=== PATIENT | female | born 1965 | race Caucasian/White ===

== ENCOUNTER 2016-11-10 21:04 | Emergency (ER) | payer OTHER ==
--- NOTE | 2016-11-11 00:08 | ED CLINICAL REPORT ---
Clinical Report - Physicians/Mid Levels [facility] [address] [place] [address] 11/10/2016 21:04 Patient: ROBBY MORSE Time Seen: 21:37. Arrived- By private vehicle. Historian- patient. HISTORY OF PRESENT ILLNESS Chief Complaint: VOMITING. This started several days ago and is still present. It was gradual in onset and has been intermittent and waxing/waning. Recent travel in the last two (2) weeks- [place] and [place]. She has had nausea and vomiting. No diarrhea, black stools, bloody stools, flank pain or history of possible bad food exposure. No known contact with a sick individual. She has had mild abdominal pain (after vomiting). The pain is described as located in the epigastrium. Has not recently been camping. Has recently been on antibiotics for ENT problems (Augmentin). The illness is described as severe. REVIEW OF SYSTEMS No chills, fever, calf pain, chest pain or cough. No difficulty breathing, pedal edema, palpitations, black stools or bloody stools. No constipation, diarrhea or urinary problems. She has experienced sweats. All systems otherwise negative, except as recorded above. PAST HISTORY Problems: Asthma. Additional Surgeries: . Knee Surgery. Nephrectomy. Sinus Surgery. Tonsillectomy. Medications: Augmentin 875mg BID started on Monday. Allergy shots 1x/month. Albuterol Sulfate Inhalation 2 unit doses, PRN. Claritin Oral 10 mg, PRN. Flonase Nasal 2 sprays, daily. Methylphenidate HCl Oral (Tablet 20 mg) 1 tablet, daily. Qvar Inhalation 2 puffs daily . Singulair Oral, at bedtime. Allergies: Codeine.(dizziness) (nausea, vomiting) Levaquin. (general body aches "felt like I had the flu") Percocet.(diarrhea, nausea). SOCIAL HISTORY Never smoker. No alcohol use or drug use. FAMILY HISTORY No significant family medical history. ADDITIONAL NOTES The nursing notes have been reviewed. PHYSICAL EXAM Vital Signs: 11/10/2016 21:28 BP: 116/67. HR: 86. RR: 18. O2 saturation: 100%. Temp: 98.4 F. Pain level now: 08/02. Have been reviewed. Appearance: Alert. Eyes: Pupils equal, round and reactive to light. ENT: Pharynx normal. Neck: Normal inspection. Neck supple. CVS: Normal heart rate and rhythm. Heart sounds normal. Respiratory: No respiratory distress. Breath sounds normal. Abdomen: Soft and nontender. Bowel sounds normal. No organomegaly. No mass. Back: Normal inspection. No CVA tenderness. Skin: Skin warm and dry. Normal skin color. No rash. Normal skin turgor. Extremities: Extremities exhibit normal ROM. No calf tenderness. No lower extremity edema. LABS, X-RAYS, AND EKG Laboratory Tests: UA-Culture if indicated: (MANUEL: 11/10/2016 22:50) ( [facility] 11/10/2016 23:28) Final results Test Result Flag Units (Reference) URINE COLOR YELLOW URINE APPEARANCE CLEAR URINE GLUCOSE NEGATIVE (NEGATIVE) URINE BILIRUBIN NEGATIVE (NEGATIVE) URINE KETONE NEGATIVE (NEGATIVE) URINE SPECIFIC GRAVITY 1.010 (1.010-1.030) URINE PH 7.5 (5.0-8.0) URINE PROTEIN NEGATIVE (NEGATIVE) URINE UROBILINOGEN 0.2 EU/dL (0.2-1.0) URINE NITRITE NEGATIVE (NEGATIVE) URINE BLOOD NEGATIVE (NEGATIVE) URINE LEUK ESTERASE NEGATIVE (NEGATIVE) URINE RBC 0-1 rbc/hpf (0-1) URINE WBC 0-1 wbc/hpf (0-1) URINE EPITHELIAL CELLS 0-1 EPI/hpf (0-5) URINE BACTERIA NONE SEEN (NONE SEEN) URINE COMMENT CULT NOT INDICATED URINE CULTURES ARE SET-UP BASED ON THE FOLLOWING CRITERIA:POSITIVE NITRITEPOSITIVE LEUKOCYTE ESTERASEGREATER THAN 10 WHITE BLOOD CELLSMODERATE (2+) OR GREATER BACTERIA Urine: (MANUEL: 11/10/2016 22:50) ( [facility] 11/10/2016 23:17) Final results Test Result Flag Units (Reference) URINE NEGATIVE CBC w Diff: (MANUEL: 11/10/2016 21:55) ( [facility] 11/10/2016 22:14) Final results Test Result Flag Units (Reference) WHITE BLOOD COUNT 3.4 L K/uL (4.5-11.5) RED BLOOD COUNT 4.80 M/uL (4.00-5.20) HEMOGLOBIN 13.9 gm/dL (12.0-16.0) HEMATOCRIT 41.7 % (36.0-46.0) MEAN CELL VOLUME 87 fL (80-100) MEAN CORPUSCULAR HGB 29 pg (26-34) MEAN CORPUSCULAR HGB CONC 33 g/dL (31-37) RED CELL DISTRIBUTION WIDTH 12.8 % (11.6-14.8) PLATELET COUNT 153 K/uL (150-400) NEUTROPHIL % 35.1 L % (50-75) LYMPH % 51.5 H % (25-40) MONO % 11.4 % (3-14) EOSINOPHIL % 1.8 % (0-4) BASOPHIL % 0.2 % (0-2) CMP: (MANUEL: 11/10/2016 21:55) ( MsgRcvd 11/10/2016 22:30) Final results Test Result Flag Units (Reference) GLUCOSE 101 mg/dL (70-110) BUN 12 mg/dL (7-18) CREATININE 1.1 mg/dL (0.6-1.3) Estimated GFR 56.11 mL/min Estimated GFR- >60 mL/min Note: Persistent reduction over 3 months in eGFR<60 mL/min/1.73 m2 defines CKD. Patients with eGFR values>=60 mL/min/1.73 m2 may also have CKD if evidence ofpersistent proteinuria. Additional information may be foundat www.kidney.org. SODIUM 140 mmol/L (136-145) POTASSIUM 3.9 mmol/L (3.5-5.1) CHLORIDE 102 mmol/L (98-107) CARBON DIOXIDE 29 mmol/L (21-32) CALCIUM 8.7 mg/dL (8.5-10.1) TOTAL PROTEIN 6.8 g/dL (6.4-8.2) ALBUMIN 3.4 g/dL (3.3-5.0) BILIRUBIN, TOTAL 0.3 mg/dL (0.0-1.0) ALKALINE PHOSPHATASE 36 L U/L (46-116) AST (SGOT) 25 U/L (15-37) ALT (SGPT) 31 U/L (12-78) LIPASE 106 U/L (73-393) AMYLASE 52 U/L (25-115) . PROGRESS AND PROCEDURES Course of Care: Symptoms better. Vital signs have been reviewed. Physical exam findings are improved. Alert. No acute distress. Breath sounds normal. No respiratory distress. Normal heart rate and rhythm. Heart sounds normal. Abdomen soft and nontender. Skin warm and dry. Patient/family counseled. Old medical records ordered. Disposition: Discharged. Condition: stable. CLINICAL IMPRESSION Acute gastroenteritis. INSTRUCTIONS No driving or operating machinery while taking medication. Sedative medication was given during your visit. Rest. Drink plenty of fluids. Warnings: Further evaluation is necessary. GENERAL WARNINGS: Return or contact your physician immediately if your condition worsens or changes unexpectedly, if not improving as expected, or if other problems arise. Prescription Medications: Zofran 4 mg: Take 1 orally every six hours as needed for nausea/vomiting. Dispense ten (10). No refills. Substitution is permissible. Phenergan suppositories 25 mg: Insert 1 rectally every 4 to 6 hours as needed for nausea or vomiting. Dispense ten (10). No refills. Substitution is permissible. Follow-up: Follow up with your doctor HUSSAIN KITCHEN tomorrow. Call for an appointment. Understanding of the discharge instructions verbalized by patient and family. (Electronically signed by Harvey Palomino MD 11/11/2016 9:25)
--- NOTE | 2016-11-11 00:09 | ED ORDER SUMMARY ---
..... Patient: ROBBY MORSE OrderSheet [facility] VisitID: [id number] [address] [place] [address] 51y, F Registration Date/Time: 11/10/2016 ORDER SHEET Weight: 71.2 kg (stated) Allergies: Levaquin, Percocet, Codeine GENERAL ORDERS: CBC w Diff Urgent (21:43 11/10/2016 Zohreh ARAUZ) (Ack 21:45 SRedmond) (22:14 DDean R.N.) CMP Urgent (:43 11/10/2016 Zohreh ARAUZ) (Ack 21:45 SRedmond) (22:14 DDean R.N.) UA-Culture if indicated Urgent (:43 11/10/2016 Zhoreh ARAUZ) (Ack 21:45 SRedmond) (23:05 DDean R.N.) Amylase Urgent (:11/10/2016 Zohreh ARAUZ) (Ack 21:45 SRedmond) (22:14 DDean R.N.) Lipase Urgent (21:43 11/10/2016 Zohreh ARAUZ) (Ack 21:45 SRedmond) (22:14 DDean R.N.) Urine Urgent (:43 11/10/2016 Zohreh ARAUZ) (Ack 21:45 SRedmond) (23:05 DDean R.N.) MEDICATION ORDERS: Phenergan IV 25 mg (HIGH ALERT MEDICATION, NOW) (22:55 11/10/2016 DDean R.N. verbal order read back to Zohreh ARAUZ) (23:08 DDean R.N.) IV FLUIDS: IV NS : initial bolus 500 mL (1000 mL/hr), then 125 mL/hr for 4h (NOW); Urgent (21:43 11/10/2016 Zohreh ARAUZ) (Ack 21:45 DDean R.N.) (22:11 DDean R.N.) Zofran IV 4 mg (NOW) (21:43 11/10/2016 Zohreh ARAUZ) (Ack 21:45 DDean R.N.) (22:15 DDean R.N.) Protonix IVP 40mg 40 mg (Mix in NS 10ml over 2min) (22:11 11/10/2016 Zohreh ARAUZ) (Ack 22:15 DDean R.N.) (22:31 DDean R.N.) Zofran IV 4 mg (NOW) (22:55 11/10/2016 DDean R.N. per protocol) (22:56 DDean R.N.) ORDER SHEET NOTES: [Electronically signed by Gilma Lovell R.N. (00:43 11/11/2016)] [Electronically signed by Harvey Palomino MD (09:25 11/11/2016)] [Electronically locked/signed by Gilma Lovell R.N. (00:43 11/11/2016)]
--- NOTE | 2016-11-11 00:09 | ED NURSING NOTES ---
Clinical Report - Nurses [facility] [address] [place] [address] 11/10/2016 21:04 Patient: ROBBY MORSE TRIAGE Acuity: LEVEL 3. Chief Complaint: ABDOMINAL PAIN, NAUSEA and VOMITING and (pt started on antibiotics for sinus infection on Monday afternoon, started vomiting Tues PM. state vomiting started before any abd pain). --21:38 Sary Storey R.N. 21:28 11/10/16. BP: 116/67. HR: 86. RR: 18. O2 saturation: 100%. Temp: 98.4 F. Pain level now: 08/02. Additional comments: "really don't have pain, its just nausea". --21:38 Sary Storey R.N. Weight: 71.2 kg stated. Height/Length: 66.5 inches Per Patient. BMI: 25. --21:36 Sary Storey R.N. Medications Albuterol Sulfate Inhalation 2 unit doses, PRN. Claritin Oral 10 mg, PRN. Flonase Nasal 2 sprays, daily. Methylphenidate HCl Oral (Tablet 20 mg) 1 tablet, daily. Qvar Inhalation 2 puffs daily . Singulair Oral, at bedtime. --21:34 Sary Storey R.N. Allergy shots 1x/month. --21:35 Sary Storey R.N. Augmentin 875mg BID started on Monday. --21:36 Sary Storey R.N. Allergies Levaquin. (general body aches "felt like I had the flu") --21:31 Sary Storey R.N. Percocet.(diarrhea, nausea) --21:31 Sary Storey R.N. Codeine.(dizziness) (nausea, vomiting) --21:32 Sary Storey R.N. History Arrived by private vehicle. Historian: patient. Accompanied by spouse. Primary physician (amauri). The patient has had nausea and vomiting. She has had abdominal pain (epigastric pain "I think it is from throwing up"). ( [facility] called today and told pt to stop augmenting, and to take doxycyclin instead). SURGERY HX: . Right knee surgery. 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 Sinus surgery. Tonsillectomy. SOCIAL HX: Never smoker. No alcohol use or drug use. --21:38 Sary Storey R.N. PROBLEMS: Asthma. --21:29 Sary Storey R.N. Interventions ID band on patient. To treatment room. --21:38 Sary Storey R.N. PHYSICAL ASSESSMENT 21:28. Ambulatory to room. Patient gowned. GENERAL / NEURO / PSYCH: Alert. Oriented X 4. ( states "pain is a 1/10 but nausea is 10/10 "). RESPIRATORY: Respirations not labored. CVS: Capillary refill less than 2 seconds. GI / : Abdomen soft. SKIN: Skin is warm and dry. --21:44 Sary Storey R.N. NURSING PROGRESS NOTES 21:28. Patient gowned. Head of bed elevated. Reassurance given. Lights dimmed. Patient identifiers checked. Call light placed in reach. Side rails up. Bed placed in lowest position. Patient ready for evaluation- chart flagged. --21:44 Sary Storey R.N. 21:55 11/10/2016 Site #1 started via IV in the right antecubital space with an 20g angiocath, with aseptic technique and good blood return; one attempt. Blood drawn: rainbow set. Labeled in the presence of the patient and sent to the lab. Saline lock flushed with 10 mL saline. --22:10 Sary Storey R.N. 22:01 11/10/2016 Started bag #1 1000 mL IV Fluids IV NS (Saline); bolus of 500 mL over 30 minute(s) then at 125 mL/hr over 4 hour(s) via site #1 --22:11 Sary Storey R.N. 22:03 11/10/2016 Zofran (Ondansetron HCl) IVP 4 mg given over 1 minute(s) via site #1. IV patency established. IV site checked: no pain, redness, or swelling. IV flushed thoroughly pre- and post-medication administration. IVP given by RN. --22:15 Sary Storey R.N. 22:16 11/10/2016 PROTONIX (Pantoprazole Sodium) IVP 40 mg given over 2 minute(s) via site #1. IV patency established. IV site checked: no pain, redness, or swelling. IV flushed thoroughly pre- and post-medication administration. IVP given by RN. --22:31 Sary Storey R.N. 22:22 11/10/2016 Zofran (Ondansetron HCl) IVP 4 mg given over 1 minute(s) via site #1. IV patency established. IV site checked: no pain, redness, or swelling. IV flushed thoroughly pre- and post-medication administration. IVP given by RN. --22:56 Sary Storey R.N. 22:20 still nauseated, states nausea is still 8/10 ERMD notifed, additional meds given. --23:06 Sary Storey R.N. 22:45. Patient ID band checked for patient name and birthdate: patient confirmed. Clean catch urine collected with return of yellow-colored clear urine; sample sent to lab for urinalysis, culture and HCG. Specimen labeled in the presence of the patient. --23:07 Sary Storey R.N. 23:00 11/10/2016 PHENERGAN (Promethazine HCl) IVP 25 mg given over 2 minute(s) via site #1. IV patency established. IV site checked: no pain, redness, or swelling. IV flushed thoroughly pre- and post-medication administration. IVP given by RN. --23:08 Sary Storey R.N. 23:00. ( coughing vigorously--wrenching additional anti-nausea meds given). --23:08 Sary Storey R.N. 23:15 11/10/16. BP: 107/58. HR: 62. RR: 16. O2 saturation: 98% on room air. Temp: deferred. Pain level now: 0/10. Additional comments: states nausea is 4/10 now. cough is gone at present. at bedside. --23:20 Sary Storey R.N. 23:20 11/10/16. Care transferred and report given (NATHANIEL Dillard). --23:20 Sary Storey R.N. 00:41 11/11/2016 IV Fluids IV NS Discontinued: bag #1 completed upon discharge. Total amount infused: 94502 mL. IV patency established. IV site checked: no pain, redness, or swelling. IV flushed thoroughly. --00:41 Allie Estrada DISPOSITION / DISCHARGE 00:41 11/11/2016 Site #1 removed upon discharge. Catheter intact. Bandage applied. --00:41 Allie Estrada Departure time: 00:42. Condition at departure: improved. No learning barriers present. Discharge instructions provided and reviewed with the patient. Reviewed medication(s) side effects, precautions, dosing and course information. Prescription(s) given to the patient. Activity restrictions reviewed (no driving). Follow up contact number with PCP. Patient verbalized understanding. Written instructions provided in Egyptian. No warning instructions, treatment instructions, referrals given to the patient, diet instructions or note given. No stop smoking instructions. The patient was discharged by the physician. She was discharged home and accompanied by spouse. She left the Emergency Department ambulatory and via private vehicle. Spouse driving. FALL RISK ASSESSMENT: Fall risk assessment completed. No fall risk identified. --00:43 Allie Estrada 00:41 11/11/16. BP: 118/71. HR: 88. RR: 17. O2 saturation: 98%. Temp: deferred. Pain level now: 0/10. --00:43 Allie Estrada Locked/Released at 11/11/2016 0:43 by Allie Estrada
--- NOTE | 2016-11-11 00:09 | ED ORDER SUMMARY ---
..... Patient: ROBBY MORSE OrderSheet [facility] VisitID: [id number] [address] [place] [address] 51y, F Registration Date/Time: 11/10/2016 ORDER SHEET Weight: 71.2 kg (stated) Allergies: Levaquin, Percocet, Codeine GENERAL ORDERS: CBC w Diff Urgent (21:43 11/10/2016 Zohreh ARAUZ) (Ack 21:45 SRedmond) (22:14 DDean R.N.) CMP Urgent (:43 11/10/2016 Zohreh ARAUZ) (Ack 21:45 SRedmond) (22:14 DDean R.N.) UA-Culture if indicated Urgent (:43 11/10/2016 Zohreh ARAUZ) (Ack 21:45 SRedmond) (23:05 DDean R.N.) Amylase Urgent (:11/10/2016 Zohreh ARAUZ) (Ack 21:45 SRedmond) (22:14 DDean R.N.) Lipase Urgent (21:43 11/10/2016 Zohreh ARAUZ) (Ack 21:45 SRedmond) (22:14 DDean R.N.) Urine Urgent (:43 11/10/2016 Zohreh ARAZU) (Ack 21:45 SRedmond) (23:05 DDean R.N.) MEDICATION ORDERS: Phenergan IV 25 mg (HIGH ALERT MEDICATION, NOW) (22:55 11/10/2016 DDean R.N. verbal order read back to Zohreh ARAUZ) (23:08 DDean R.N.) IV FLUIDS: IV NS : initial bolus 500 mL (1000 mL/hr), then 125 mL/hr for 4h (NOW); Urgent (21:43 11/10/2016 Zohreh ARAUZ) (Ack 21:45 DDean R.N.) (22:11 DDean R.N.) Zofran IV 4 mg (NOW) (21:43 11/10/2016 Zohreh ARAUZ) (Ack 21:45 DDean R.N.) (22:15 DDean R.N.) Protonix IVP 40mg 40 mg (Mix in NS 10ml over 2min) (22:11 11/10/2016 Zohreh ARAUZ) (Ack 22:15 DDean R.N.) (22:31 DDean R.N.) Zofran IV 4 mg (NOW) (22:55 11/10/2016 DDean R.N. per protocol) (22:56 DDean R.N.) ORDER SHEET NOTES: [Electronically signed by Gilma Lovell R.N. (00:43 11/11/2016)] [Electronically signed by Harvey Palomino MD (09:25 11/11/2016)] [Electronically locked/signed by Gilma Lovell R.N. (00:43 11/11/2016)]
--- NOTE | 2016-11-11 09:26 | ED MED RECONCILIATION SUMMARY ---
Patient: ROBBY MORSE Medication Reconciliation Report VisitID: [id number] [address] [place] [address] 51y, F Registration Date/Time: 11/10/2016 Weight: 71.2 kg Height/Length: (not available) BMI: 25.0 ALLERGIES: Codeine, Levaquin, Percocet The patient's Home Medications are listed below: THE FOLLOWING MEDICATIONS NEED TO BE RECONCILED: Albuterol Sulfate Inhalation 2 unit doses, PRN Allergy shots 1x/month Augmentin 875mg BID started on Monday Claritin Oral 10 mg, PRN Flonase Nasal 2 sprays, daily Methylphenidate HCl Oral (20 mg) 1 tablet, daily Qvar Inhalation 2 puffs daily Singulair Oral, at bedtime The source(s) of the original Home Medication information: Not obtained. The following Medications were given to the patient in the Emergency Department: IV NS IV Fluids bolus 500 mL over 30 minute(s), then 125 mL/hr, administered: 11/10/2016 10:01:00 PM Zofran [IVP] IVP 4 mg, administered: 11/10/2016 10:03:00 PM PROTONIX [IVP] IVP 40 mg, administered: 11/10/2016 10:16:00 PM Zofran [IVP] IVP 4 mg, administered: 11/10/2016 10:22:00 PM PHENERGAN [IVP] IVP 25 mg, administered: 11/10/2016 11:00:00 PM The following Medications were prescribed to the patient: Zofran 4 mg: Take 1 orally every six hours as needed for nausea/vomiting. Dispense ten (10). No refills. Substitution is permissible. -- Harvey Palomino MD Phenergan suppositories 25 mg: Insert 1 rectally every 4 to 6 hours as needed for nausea or vomiting. Dispense ten (10). No refills. Substitution is permissible. -- Harvey Palomino MD
--- NOTE | 2016-11-11 09:26 | ED MAR SUMMARY ---
..... Medication Administration Record [facility] [address] [place] [address] Patient: ROBBY MORSE Visit ID: [id number] 51y, F Weight: 71.2 kg Height/Length: 66.5 in BMI: 25 ALLERGIES: Codeine, Percocet, Levaquin Start 22:01 11/10/2016 Sary Storey R.N., Stop 00:41 11/11/2016 Allie Esrtada Medication Administered: IV NS (SALINE), Dose: IV Fluids over 4 hour(s), Rate: 125 mL/hr, Bolus: 500 mL over 30 minute(s), Dispensed: 1000 mL bag, Site: #1 right AC. Medication Ordered: IV NS : initial bolus 500 mL (1000 mL/hr), then 125 mL/hr for 4h (NOW); Urgent. Given 22:03 11/10/2016 Sary Storey R.N. Medication Administered: ZOFRAN [IVP] (ONDANSETRON HCL), Dose: 4 mg IVP over 1 minute(s), Site: #1 right AC. Medication Ordered: Zofran IV 4 mg (NOW). Given 22:16 11/10/2016 Sary Storey R.N. Medication Administered: PROTONIX [IVP] (PANTOPRAZOLE SODIUM), Dose: 40 mg IVP over 2 minute(s), Site: #1 right AC. Medication Ordered: Protonix IVP 40mg 40 mg (Mix in NS 10ml over 2min). Given 22:22 11/10/2016 Sary Storey R.N. Medication Administered: ZOFRAN [IVP] (ONDANSETRON HCL), Dose: 4 mg IVP over 1 minute(s), Site: #1 right AC. Medication Ordered: Zofran IV 4 mg (NOW). Given 23:00 11/10/2016 Sary Storey R.N. Medication Administered: PHENERGAN [IVP] (PROMETHAZINE HCL), Dose: 25 mg IVP over 2 minute(s), Site: #1 right AC. Medication Ordered: Phenergan IV 25 mg (HIGH ALERT MEDICATION, NOW).
--- NOTE | 2016-11-11 09:26 | ED DISCHARGE INSTRUCTIONS ---
Patient: ROBBY MORSE General Instructions [facility] VisitID: [id number] [address] [place] [address] 51y, F Registration Date/Time: 11/10/2016 Acute gastroenteritis. INSTRUCTIONS No driving or operating machinery while taking medication. Sedative medication was given during your visit. Rest. Drink plenty of fluids. Warnings: Further evaluation is necessary. GENERAL WARNINGS: Return or contact your physician immediately if your condition worsens or changes unexpectedly, if not improving as expected, or if other problems arise. Prescription Medications: Zofran 4 mg: Take 1 orally every six hours as needed for nausea/vomiting. Dispense ten (10). No refills. Substitution is permissible. Phenergan suppositories 25 mg: Insert 1 rectally every 4 to 6 hours as needed for nausea or vomiting. Dispense ten (10). No refills. Substitution is permissible. Follow-up: Follow up with your doctor HUSSAIN KITCHEN tomorrow. Call for an appointment. Understanding of the discharge instructions verbalized by patient and family. ADDITIONAL INFORMATION Viral Gastroenteritis (6Yr-Adult) Gastroenteritis is another name for thestomach flu.It is most often caused by a virus that affects the stomach and intestinal tract. Symptoms include stomach cramping and fever, vomiting and/or diarrhea, and can last from 2 to 7 days. The danger from repeated vomiting or diarrhea is dehydration. This is the loss of too much water and minerals from the body. When this occurs, body fluids must be replaced. Antibiotics are not effective for this illness, but simple home treatment will be helpful. Home Care If symptoms are severe, rest at home for the next 24 hours. Avoid tobacco, caffeine, and alcohol use, which can worsen symptoms. Acetaminophen (Tylenol) or ibuprofen (Motrin, Advil) may be usedfor fever or pain unless another medication was prescribed. NOTE: If you have chronic liver or kidney disease or ever had a stomach ulcer or GI bleeding, talk with your doctor before using these medicines. Aspirin should never be used in anyone under 18 years of age who is ill with a fever. It may cause severe liver damage. If medicines for diarrhea or vomiting were prescribed, be sure they are takenonly as directed. If vomiting, drink small amounts of clear fluids (such as water, sports drinks, clear sodas) at frequent intervals to prevent dehydration. Start with 1 to 2 tablespoons every 10 minutes. Once vomiting stops, follow these guidelines: During The First 12 To 24 Hours follow the diet below: Beverages: Sport drinks like Gatorade, soft drinks without caffeine; cynthia cash, mineral water (plain or flavored), decaffeinated tea and coffee. Soups: Clear broth, consomm and bouillon Desserts: Plain gelatin (Jell-O), Popsicles and fruit juice bars. During The Next 24 Hours you may add the following to the above: Hot cereal, plain toast, bread, rolls, crackers Plain noodles, rice, mashed potatoes, chicken noodle or rice soup Unsweetened canned fruit (avoid pineapple), bananas Limit fat intake to less than 15 grams per day by avoiding margarine, butter, oils, mayonnaise, sauces, gravies, fried foods, peanut butter, meat, poultry, and fish. Limit fiber; avoid raw or cooked vegetables, fresh fruits (except bananas), and bran cereals. Limit caffeine and chocolate. Do not use spices or seasonings except salt. During The Next 24 Hours The patient can gradually resume a normal diet as symptoms lessen. Preventing Spread Hand washing with soap and water is the best way to prevent the spread of viruses. Caregivers should wash their hands before andafter touching the sick person. The sick person, as well as everyone in the family,should wash their hands after using the toilet and before meals. Clean the toilet after each use. People with diarrhea should not prepare food for others. If you are preparing your own foods, wash your hands before and after. Follow Up with your doctor as advised. Call your doctor if you are not improving over the next 2 to 3 days. If a stool (diarrhea) sample was taken, you may call in 2 days (or as directed) for the results. Get Prompt Medical Attention if any of the following occur: Increasing abdominal pain Continued vomiting (unable to keep liquids down) Frequent diarrhea (more than 5 times a day) Blood in vomit or stool (black or red color) Dark urine, reduced urine output, or extreme thirst Weakness, dizziness, fainting Drowsiness, confusion, stiff neck, or seizure Fever of 100.4F (38C) oral or higher, not better with fever medication New rash Ondansetron Oral disintegrating tablet What is this medicine? ONDANSETRON (on MATT se ashley) is used to treat nausea and vomiting caused by chemotherapy. It is also used to prevent or treat nausea and vomiting after surgery. How should I use this medicine? These tablets are made to dissolve in the mouth. Do not try to push the tablet through the foil backing. With dry hands, peel away the foil backing and gently remove the tablet. Place the tablet in the mouth and allow it to dissolve, then swallow. While you may take these tablets with water, it is not necessary to do so. Talk to your tank filler regarding the use of this medicine in children. Special care may be needed. What side effects may I notice from receiving this medicine? Side effects that you should report to your doctor or health healthcare risk control consultant as soon as possible: allergic reactions like skin rash, itching or hives, swelling of the face, lips, or tongue breathing problems dizziness fast or irregular heartbeat feeling faint or lightheaded, falls fever and chills swelling of the hands and feet tightness in the chest Side effects that usually do not require medical attention (report to your doctor or health healthcare risk control consultant if they continue or are bothersome): constipation or diarrhea headache What may interact with this medicine? Do not take this medicine with any of the following medications: -apomorphine -cisapride -dofetilide -dronedarone -pimozide -thioridazine -ziprasidone This medicine may also interact with the following medications: -carbamazepine -phenytoin -rifampicin -tramadol -other medicines that prolong the QT interval (cause an abnormal heart rhythm) What if I miss a dose? If you miss a dose, take it as soon as you can. If it is almost time for your next dose, take only that dose. Do not take double or extra doses. Where should I keep my medicine? Keep out of the reach of children. Store between 2 and 30 degrees C (36 and 86 degrees F). Throw away any unused medicine after the expiration date. What should I tell my health care provider before I take this medicine? They need to know if you have any of these conditions: heart disease history of irregular heartbeat liver disease low levels of magnesium or potassium in the blood an unusual or allergic reaction to ondansetron, granisetron, other medicines, foods, dyes, or preservatives or trying to get breast-feeding What should I watch for while using this medicine? Check with your doctor or health healthcare risk control consultant as soon as you can if you have any sign of an allergic reaction. Promethazine Hydrochloride Rectal suppository What is this medicine? PROMETHAZINE (proe METH a zeen) is an antihistamine. It is used to treat allergic reactions and to treat or prevent nausea and vomiting from illness or motion sickness. It is also used to make you sleep before surgery, and to help treat pain or nausea after surgery. How should I use this medicine? This medicine is for rectal use only. Do not take by mouth. Wash your hands before and after use. Take off the foil wrapping. Wet the tip of the suppository with cold tap water to make it easier to use. Lie on your side with your lower leg straightened out and your upper leg bent forward toward your stomach. Lift upper buttock to expose the rectal area. Apply gentle pressure to insert the suppository completely into the rectum, pointed end first. Hold buttocks together for a few seconds. Remain lying down for about 15 minutes to avoid having the suppository come out. Do not use more often than directed. Talk to your tank filler regarding the use of this medicine in children. Special care may be needed. This medicine should not be given to infants and children younger than 2 years old. What side effects may I notice from receiving this medicine? Side effects that you should report to your doctor or health healthcare risk control consultant as soon as possible: blurred vision irregular heartbeat, palpitations or chest pain muscle or facial twitches pain or difficulty passing urine seizures skin rash slowed or shallow breathing unusual bleeding or bruising yellowing of the eyes or skin Side effects that usually do not require medical attention (report to your doctor or health healthcare risk control consultant if they continue or are bothersome): headache nightmares, agitation, nervousness, excitability, not able to sleep (these are more likely in children) stuffy nose What may interact with this medicine? Do not take this medicine with any of the following medications: medicines called MAO Inhibitors like Nardil, Parnate, Marplan, Eldepryl other phenothiazines like trimethobenzamide This medicine may also interact with the following medications: barbiturates such as phenobarbital bromocriptine certain antidepressants certain antihistamines used in allergy or cold medicines epinephrine levodopa medicines for sleep medicines for mental problems and psychotic disturbances medicines for movement abnormalities as in Parkinson's disease, or for gastrointestinal problems muscle relaxants prescription pain medicines What if I miss a dose? If you miss a dose, use it as soon as you can. If it is almost time for your next dose, use only that dose. Do not use double doses. Where should I keep my medicine? Keep out of the reach of children. Store in a refrigerator between 2 and 8 degrees C (36 and 46 degrees F). Throw away any unused medicine after the expiration date. What should I tell my health care provider before I take this medicine? They need to know if you have any of these conditions: glaucoma high blood pressure or heart disease kidney disease liver disease lung or breathing disease, like asthma prostate trouble pain or difficulty passing urine seizures an unusual or allergic reaction to promethazine or phenothiazines, other medicines, foods, dyes, or preservatives or trying to get breast-feeding What should I watch for while using this medicine? Tell your doctor or health healthcare risk control consultant if your symptoms do not start to get better in 1 to 2 days. You may get drowsy or dizzy. Do not drive, use machinery, or do anything that needs mental alertness until you know how this medicine affects you. To reduce the risk of dizzy or fainting spells, do not stand or sit up quickly, especially if you are an older patient. Alcohol may increase dizziness and drowsiness. Avoid alcoholic drinks. Your mouth may get dry. Chewing sugarless gum or sucking hard candy, and drinking plenty of water may help. Contact your doctor if the problem does not go away or is severe. This medicine may cause dry eyes and blurred vision. If you wear contact lenses you may feel some discomfort. Lubricating drops may help. See your eye doctor if the problem does not go away or is severe. This medicine can make you more sensitive to the sun. Keep out of the sun. If you cannot avoid being in the sun, wear protective clothing and use sunscreen. Do not use sun lamps or tanning beds/booths. If you are diabetic, check your blood-sugar levels regularly. You have been given the following additional information: Gastroenteritis, Viral (6Y-Adult) Ondansetron Oral disintegrating tablet Promethazine Hydrochloride Rectal suppository No driving or operating machinery while taking medication. Sedative medication was given during your visit. Rest. (Electronically signed by Harvey Palomino MD 11/11/2016 9:25)
--- NOTE | 2016-11-11 09:26 | ED MAR SUMMARY ---
..... Medication Administration Record [facility] [address] [place] [address] Patient: ROBBY MORSE Visit ID: [id number] 51y, F Weight: 71.2 kg Height/Length: 66.5 in BMI: 25 ALLERGIES: Codeine, Percocet, Levaquin Start 22:01 11/10/2016 Sary Storey R.N., Stop 00:41 11/11/2016 Allie Estrada Medication Administered: IV NS (SALINE), Dose: IV Fluids over 4 hour(s), Rate: 125 mL/hr, Bolus: 500 mL over 30 minute(s), Dispensed: 1000 mL bag, Site: #1 right AC. Medication Ordered: IV NS : initial bolus 500 mL (1000 mL/hr), then 125 mL/hr for 4h (NOW); Urgent. Given 22:03 11/10/2016 Sary Storey R.N. Medication Administered: ZOFRAN [IVP] (ONDANSETRON HCL), Dose: 4 mg IVP over 1 minute(s), Site: #1 right AC. Medication Ordered: Zofran IV 4 mg (NOW). Given 22:16 11/10/2016 Sary Storey R.N. Medication Administered: PROTONIX [IVP] (PANTOPRAZOLE SODIUM), Dose: 40 mg IVP over 2 minute(s), Site: #1 right AC. Medication Ordered: Protonix IVP 40mg 40 mg (Mix in NS 10ml over 2min). Given 22:22 11/10/2016 Sary Storey R.N. Medication Administered: ZOFRAN [IVP] (ONDANSETRON HCL), Dose: 4 mg IVP over 1 minute(s), Site: #1 right AC. Medication Ordered: Zofran IV 4 mg (NOW). Given 23:00 11/10/2016 Sary Storey R.N. Medication Administered: PHENERGAN [IVP] (PROMETHAZINE HCL), Dose: 25 mg IVP over 2 minute(s), Site: #1 right AC. Medication Ordered: Phenergan IV 25 mg (HIGH ALERT MEDICATION, NOW).
--- NOTE | 2016-11-11 09:26 | ED MED RECONCILIATION SUMMARY ---
Patient: ROBBY MORSE Medication Reconciliation Report [facility] VisitID: [id number] [address] [place] [address] 51y, F Registration Date/Time: 11/10/2016 Weight: 71.2 kg Height/Length: (not available) BMI: 25.0 ALLERGIES: Codeine, Levaquin, Percocet The patient's Home Medications are listed below: THE FOLLOWING MEDICATIONS NEED TO BE RECONCILED: Albuterol Sulfate Inhalation 2 unit doses, PRN Allergy shots 1x/month Augmentin 875mg BID started on Monday Claritin Oral 10 mg, PRN Flonase Nasal 2 sprays, daily Methylphenidate HCl Oral (20 mg) 1 tablet, daily Qvar Inhalation 2 puffs daily Singulair Oral, at bedtime The source(s) of the original Home Medication information: Not obtained. The following Medications were given to the patient in the Emergency Department: IV NS IV Fluids bolus 500 mL over 30 minute(s), then 125 mL/hr, administered: 11/10/2016 10:01:00 PM Zofran [IVP] IVP 4 mg, administered: 11/10/2016 10:03:00 PM PROTONIX [IVP] IVP 40 mg, administered: 11/10/2016 10:16:00 PM Zofran [IVP] IVP 4 mg, administered: 11/10/2016 10:22:00 PM PHENERGAN [IVP] IVP 25 mg, administered: 11/10/2016 11:00:00 PM The following Medications were prescribed to the patient: Zofran 4 mg: Take 1 orally every six hours as needed for nausea/vomiting. Dispense ten (10). No refills. Substitution is permissible. -- Harvey Palomino MD Phenergan suppositories 25 mg: Insert 1 rectally every 4 to 6 hours as needed for nausea or vomiting. Dispense ten (10). No refills. Substitution is permissible. -- Harvey Palomino MD
== END 2016-11-11 00:43 | disposition home or self-care (01) ==
LOC: ED SRH 21:04
DX: K52.9 Noninfective gastroenteritis and colitis, unspecified (principal); J45.909 Unspecified asthma, uncomplicated; Z79.899 Other long term (current) drug therapy; Z79.51 Long term (current) use of inhaled steroids; Z88.1 Allergy status to other antibiotic agents; Z88.5 Allergy status to narcotic agent; Z88.6 Allergy status to analgesic agent
CPT/HCPCS: 90004; 90100; 92235; 92530; 93070; 95059